=== PATIENT | male | born 1965 | race Caucasian/White ===

== ENCOUNTER → 2021-08-21 | Outpatient (CLI) | payer OTHER ==
[2021-08-21 20:48] LABS: Creatinine, Urine Random 10.8 mg/dL (27.00-270.00); Protein, Urine Random 13.6 mg/dL (0.0-11.9); Protein/Creat Ratio, Ur Random 1.3
== END | disposition home or self-care (01) ==
LOC: LAB SHORT 11:15
PROVIDERS: Internal Medicine Nephrology
DX: N18.31 Chronic kidney disease, stage 3a (principal)
CPT/HCPCS: 82570; 84156

== ENCOUNTER → 2021-11-21 | Outpatient (CLI) | payer OTHER | END | disposition home or self-care (01) | LOC: LAB SHORT 12:09 → PLD 12:09 | DX: D18.01 Hemangioma of skin and subcutaneous tissue (principal); Q82.8 Other specified congenital malformations of skin | CPT/HCPCS: 88305 ==

== ENCOUNTER 2022-01-18 12:32 | Emergency (ER) | payer OTHER ==
[~2022-01-18] VITALS: Ht 170.2 cm; Wt 111.1 kg
[2022-01-18 13:49] LABS: BASOPHILS ABSOLUTE AUTO 0.05 K/mm3 (0.00-0.23); BASOPHILS PERCENT AUTO 1 % (0-2); EOSINOPHILS PERCENT AUTO 1 % (0-6); Hematocrit 42.3 % (37.0-53.0); Hemoglobin 12.2 g/dL (13.5-17.5); IMMATURE GRAN ABSOLUTE AUTO 0.03 K/mm3 (0.00-0.10); IMMATURE GRAN PERCENT AUTO 0 % (0-1); LYMPHOCYTES ABSOLUTE AUTO 1.53 K/mm3 (0.84-5.20); LYMPHOCYTES PERCENT AUTO 21 % (21-46); MONOCYTES ABSOLUTE AUTO 0.61 K/mm3 (0.16-1.47); MONOCYTES PERCENT AUTO 8 % (4-13); Mean Corpuscular HGB 24.8 pg (26.0-34.0); Mean Corpuscular HGB Conc 28.8 g/dL (31.5-36.5); Mean Corpuscular Volume 86 fL (80-100); Mean Platelet Volume 9.8 fL (9.1-12.4); NEUTROPHILS ABSOLUTE AUTO 5.15 K/mm3 (1.96-9.15); NEUTROPHILS PERCENT AUTO 69 % (41-73); Platelet Count 295 K/mm3 (150-400); RDW Coefficient Variation 20.1 % (11.7-14.2); RDW Standard Deviation 61.5 fL (35.1-46.3); Red Blood Cell Count 4.92 M/mm3 (4.30-5.90); White Blood Cell Count 7.47 K/mm3 (4.00-11.30)
[2022-01-18 14:09] LABS: Albumin, Blood 3.7 g/dL (3.4-5.0); Albumin/Globulin Ratio 0.8 (0.8-1.8); Bilirubin, Total 0.4 mg/dL (0.1-1.0); Bun/Creatinine Ratio 29.2 (12.0-20.0); Calcium, Blood 9.5 mg/dL (8.5-10.1); Creatinine, Blood 1.37 mg/dL (0.60-1.20); Globulin, Blood 4.4 g/dL (2.2-4.0); Potassium, Blood 5.6 mmol/L (3.5-5.5); Total Protein, Blood 8.1 g/dL (6.4-8.2)
[2022-01-18] MEDS ORDERED: Amlodipine Bes2.5 MG PO (16:59)
[2022-01-18] MEDS ORDERED: METF500 PO (17:00)
[2022-01-18] MEDS ORDERED: ATOR80 PO (17:01)
[2022-01-18] MEDS ORDERED: NEURONTIN400 MG PO (17:01)
[2022-01-18] MEDS ORDERED: ERGO50000 PO (17:01)
[2022-01-18] MEDS ORDERED: ALLO300 PO (17:02)
[2022-01-18] MEDS ORDERED: SPIR25 PO (17:02)
[2022-01-18] MEDS ORDERED: METO50ER PO (17:02)
[2022-01-18] MEDS ORDERED: JARDIANCE25 MG PO (17:03)
[2022-01-18] MEDS ORDERED: OMEP20ER PO (17:03)
[2022-01-18] MEDS ORDERED: ASPI81CH PO (17:03)
[2022-01-18] MEDS ORDERED: SILD25T PO (17:04)
[2022-01-18] MEDS ORDERED: BUME1 PO (17:04)
[2022-01-18] MEDS ORDERED: TRELEGY ELLIPT1 EACH IH (17:05)
[2022-01-18] MEDS ORDERED: ZESTRIL40 M1 PO (17:05)
[2022-01-18] MEDS ORDERED: FLUTICASONE-SA1 EAC1 INH (17:05)
== END 2022-01-18 18:50 | disposition home or self-care (01) ==
LOC: ER 12:32
PROVIDERS: Emergency Medicine
DX: R22.43 Localized swelling, mass and lump, lower limb, bilateral (principal); E11.9 Type 2 diabetes mellitus without complications; F17.210 Nicotine dependence, cigarettes, uncomplicated
CPT/HCPCS: 36415; 80053; 83880; 85025; 93005; 93010

== ENCOUNTER → 2022-03-06 | Outpatient (CLI) | payer OTHER ==
[~2022-03-06] MED LIST: ALLO300 PO; ASPI81CH PO; ATOR80 PO; Amlodipine Bes2.5 MG PO; BUME1 PO; ERGO50000 PO; FLUTICASONE-SA1 EAC1 INH; JARDIANCE25 MG PO; METF500 PO; METO50ER PO; NEURONTIN400 MG PO; OMEP20ER PO; SILD25T PO; SPIR25 PO; TRELEGY ELLIPT1 EACH IH; ZESTRIL40 M1 PO
[2022-03-06 13:00] LABS: BASOPHILS ABSOLUTE AUTO 0.06 K/mm3 (0.00-0.23); BASOPHILS PERCENT AUTO 1 % (0-2); EOSINOPHILS ABSOLUTE AUTO 0.08 K/mm3 (0.00-0.68); EOSINOPHILS PERCENT AUTO 1 % (0-6); Hematocrit 30.8 % (37.0-53.0); Hemoglobin 9.4 g/dL (13.5-17.5); IMMATURE GRAN ABSOLUTE AUTO 0.02 K/mm3 (0.00-0.10); IMMATURE GRAN PERCENT AUTO 0 % (0-1); LYMPHOCYTES ABSOLUTE AUTO 1.43 K/mm3 (0.84-5.20); LYMPHOCYTES PERCENT AUTO 18 % (21-46); MONOCYTES ABSOLUTE AUTO 0.61 K/mm3 (0.16-1.47); MONOCYTES PERCENT AUTO 8 % (4-13); Mean Corpuscular HGB 27.6 pg (26.0-34.0); Mean Corpuscular HGB Conc 30.5 g/dL (31.5-36.5); Mean Corpuscular Volume 90 fL (80-100); Mean Platelet Volume 9.2 fL (9.1-12.4); NEUTROPHILS ABSOLUTE AUTO 5.85 K/mm3 (1.96-9.15); NEUTROPHILS PERCENT AUTO 73 % (41-73); Platelet Count 296 K/mm3 (150-400); RDW Coefficient Variation 16.1 % (11.7-14.2); RDW Standard Deviation 52.9 fL (35.1-46.3); Red Blood Cell Count 3.41 M/mm3 (4.30-5.90); White Blood Cell Count 8.05 K/mm3 (4.00-11.30)
[2022-03-06 13:03] LABS: Bun/Creatinine Ratio 17.1 (12.0-20.0); Calcium, Blood 8.7 mg/dL (8.5-10.1); Creatinine, Blood 1.05 mg/dL (0.60-1.20)
[2022-03-06 15:07] LABS: Percent Saturation 4.2 % (20.0-50.0)
== END | disposition home or self-care (01) ==
LOC: LAB SHORT 12:55 → LAB 12:55
PROVIDERS: Chiropractor
DX: K27.9 Peptic ulcer, site unspecified, unspecified as acute or chronic, without hemorrhage or perforation (principal); Z86.2 Personal history of diseases of the blood and blood-forming organs and certain disorders involving the immune mechanism
CPT/HCPCS: 80048; 82728; 83540; 83550; 85025

== ENCOUNTER → 2022-07-30 | Outpatient (CLI) | payer OTHER ==
[2022-07-30 12:20] LABS: BASOPHILS ABSOLUTE AUTO 0.04 K/mm3 (0.00-0.23); BASOPHILS PERCENT AUTO 1 % (0-2); EOSINOPHILS ABSOLUTE AUTO 0.05 K/mm3 (0.00-0.68); EOSINOPHILS PERCENT AUTO 1 % (0-6); Hematocrit 42.8 % (37.0-53.0); IMMATURE GRAN ABSOLUTE AUTO 0.03 K/mm3 (0.00-0.10); IMMATURE GRAN PERCENT AUTO 0 % (0-1); LYMPHOCYTES ABSOLUTE AUTO 1.78 K/mm3 (0.84-5.20); LYMPHOCYTES PERCENT AUTO 22 % (21-46); MONOCYTES ABSOLUTE AUTO 0.48 K/mm3 (0.16-1.47); MONOCYTES PERCENT AUTO 6 % (4-13); Mean Corpuscular HGB 22.3 pg (26.0-34.0); Mean Corpuscular Volume 79 fL (80-100); Mean Platelet Volume 9.8 fL (9.1-12.4); NEUTROPHILS ABSOLUTE AUTO 5.67 K/mm3 (1.96-9.15); NEUTROPHILS PERCENT AUTO 70 % (41-73); Platelet Count 177 K/mm3 (150-400); RDW Coefficient Variation 21.2 % (11.7-14.2); RDW Standard Deviation 58.4 fL (35.1-46.3); Red Blood Cell Count 5.39 M/mm3 (4.30-5.90); White Blood Cell Count 8.05 K/mm3 (4.00-11.30)
[2022-07-30 12:28] LABS: Albumin, Blood 3.8 g/dL (3.4-5.0); Albumin/Globulin Ratio 0.8 (0.8-1.8); Bilirubin, Total 0.6 mg/dL (0.1-1.0); Bun/Creatinine Ratio 16.1 (12.0-20.0); Calcium, Blood 9.5 mg/dL (8.5-10.1); Creatinine, Blood 1.24 mg/dL (0.60-1.20); Globulin, Blood 4.6 g/dL (2.2-4.0); Potassium, Blood 4.4 mmol/L (3.5-5.5); Total Protein, Blood 8.4 g/dL (6.4-8.2)
== END | disposition home or self-care (01) ==
LOC: LAB 12:10 → LAB SHORT 12:10
PROVIDERS: Family Medicine
DX: R10.9 Unspecified abdominal pain (principal)
CPT/HCPCS: 80053; 83690; 85025

== ENCOUNTER → 2022-12-03 | Outpatient (CLI) | payer OTHER | END | disposition home or self-care (01) | LOC: LAB SHORT 12:23 → LAB 12:23 → PLD 12:23 | DX: L82.1 Other seborrheic keratosis (principal); L57.0 Actinic keratosis | CPT/HCPCS: 88305 ==

== ENCOUNTER → 2023-05-08 | Outpatient (CLI) | payer OTHER ==
[2023-05-08 14:47] LABS: Source, Urine Voided
[2023-05-08 17:14] LABS: Bilirubin, Urine Neg (Neg); Blood, Urine Neg (Neg); Glucose Qualitative, Urine 4+ (Neg); Ketones, Urine Neg (Neg); Leukocyte Esterase, Urine Neg (Neg); Nitrite, Urine Neg (Neg); Protein, Urine Neg (Neg); Urobilinogen, Urine NORM (Normal)
[2023-05-08 17:33] LABS: Appearance, Urine Clear (Clear); Color, Urine Pale Yellow (P-Yellow)
[2023-05-08 17:58] LABS: Creatinine, Urine Random 9.94 mg/dL (27.00-270.00)
[2023-05-08 18:01] LABS: Microalb/Creat Ratio UR, Rand 190.141 mg/g (0.000-30.000)
[2023-05-08 18:04] LABS: Protein, Urine Random <5.0 mg/dL (0.0-11.9); Protein/Creat Ratio, Ur Random Unable to Calculate
[2023-05-08 21:21] LABS: Osmolality, Urine 280 mos/kg (15-1400)
== END ==
LOC: LAB 11:15 → LAB SHORT 11:15
PROVIDERS: Hospitalist
DX: I12.9 Hypertensive chronic kidney disease with stage 1 through stage 4 chronic kidney disease, or unspecified chronic kidney disease (principal); N18.2 Chronic kidney disease, stage 2 (mild); Z79.1 Long term (current) use of non-steroidal anti-inflammatories (NSAID)
CPT/HCPCS: 81003; 82043; 82570; 83935; 84156

== ENCOUNTER → 2023-06-19 | Outpatient (CLI) | payer MEDICARE ==
[2023-06-19 14:03] LABS: Source, Urine Clean Catch
[2023-06-19 14:42] LABS: Appearance, Urine Clear (Clear); Bilirubin, Urine Neg (Neg); Blood, Urine Neg (Neg); Glucose Qualitative, Urine 4+ (Neg); Ketones, Urine Neg (Neg); Leukocyte Esterase, Urine Neg (Neg); Nitrite, Urine Neg (Neg); Protein, Urine Neg (Neg); Specific Gravity, Urine 1.005 (1.003-1.022); Urobilinogen, Urine NORM (Normal)
[2023-06-19 15:21] LABS: Creatinine, Urine Random 8.01 mg/dL (27.00-270.00)
[2023-06-19 15:24] LABS: Color, Urine Pale Yellow (P-Yellow)
== END | disposition home or self-care (01) ==
LOC: LAB SHORT 13:58 → LAB 13:58
PROVIDERS: Hospitalist
DX: E87.1 Hypo-osmolality and hyponatremia (principal)
CPT/HCPCS: 81003; 82570; 83935; 84300

== ENCOUNTER → 2024-06-29 | Outpatient (CLI) | payer MEDICARE ==
[~2024-06-29] MED LIST changes: +AMITRIPTYLINE H25 MG PO; +BENAZEPRIL HCL20 M4 PO; +DEXCOM G7 SENS1 EACH MC; +FLUT.05NI; +HYCAMTIN PO; +JARDIANCE10 MG PO; +METO25 PO; +OXYC10TA19 PO; +ROPINIROLE HCL1 MG PO
== END | disposition home or self-care (01) ==
LOC: LAB SHORT 07:39 → LAB 07:39 → PLD 07:39
DX: D49.2 Neoplasm of unspecified behavior of bone, soft tissue, and skin (principal)
CPT/HCPCS: 88305

== ENCOUNTER 2024-08-27 17:27 | Inpatient (IN) | payer MEDICARE ==
[~2024-08-27] VITALS: Ht 170.2 cm; Wt 88.0 kg
[2024-08-27 18:58] LABS: BASOPHILS ABSOLUTE AUTO 0.02 K/mm3 (0.00-0.23); BASOPHILS PERCENT AUTO 1 % (0-2); EOSINOPHILS ABSOLUTE AUTO 0.04 K/mm3 (0.00-0.68); EOSINOPHILS PERCENT AUTO 1 % (0-6); Hematocrit 40.3 % (37.0-53.0); Hemoglobin 14.4 g/dL (13.5-17.5); IMMATURE GRAN ABSOLUTE AUTO 0.01 K/mm3 (0.00-0.10); IMMATURE GRAN PERCENT AUTO 0 % (0-1); LYMPHOCYTES ABSOLUTE AUTO 1.09 K/mm3 (0.84-5.20); LYMPHOCYTES PERCENT AUTO 25 % (21-46); MONOCYTES ABSOLUTE AUTO 0.27 K/mm3 (0.16-1.47); MONOCYTES PERCENT AUTO 6 % (4-13); Mean Corpuscular HGB 32.3 pg (26.0-34.0); Mean Corpuscular HGB Conc 35.7 g/dL (31.5-36.5); Mean Corpuscular Volume 90 fL (80-100); Mean Platelet Volume 9.8 fL (9.1-12.4); NEUTROPHILS ABSOLUTE AUTO 2.91 K/mm3 (1.96-9.15); NEUTROPHILS PERCENT AUTO 67 % (41-73); Platelet Count 136 K/mm3 (150-400); RDW Coefficient Variation 16.8 % (11.7-14.2); RDW Standard Deviation 55.7 fL (35.1-46.3); Red Blood Cell Count 4.46 M/mm3 (4.30-5.90); White Blood Cell Count 4.34 K/mm3 (4.00-11.30)
[2024-08-27 19:22] LABS: Albumin, Blood 3.7 g/dL (3.4-5.0); Albumin/Globulin Ratio 0.9 (0.8-1.8); Bilirubin, Total 0.4 mg/dL (0.1-1.0); Bun/Creatinine Ratio 19.7 (12.0-20.0); Calcium, Blood 9.6 mg/dL (8.5-10.1); Creatinine, Blood 0.66 mg/dL (0.60-1.20); Globulin, Blood 4.1 g/dL (2.2-4.0); Total Protein, Blood 7.8 g/dL (6.4-8.2)
[2024-08-27] MEDS ORDERED: NS 1,000 ML IV SCH ×2 (20:25→23:00)
[2024-08-27] MEDS ORDERED: Nicotine 21 MG PATCH TOP ONE (21:20)
[2024-08-27] MEDS ORDERED: OxyCODONE HCL 5 MG TAB PO PRN (22:10)
[2024-08-27] MEDS ORDERED: Ondansetron HCl 2 MG / ML 2ML Vial IV PRN (22:10)
[2024-08-27] MEDS ORDERED: rOPINIRole HCl 0.25 MG Tab PO SCH (23:00)
[2024-08-27 23:28] LABS: Bun/Creatinine Ratio 21.7 (12.0-20.0); Calcium, Blood 9.1 mg/dL (8.5-10.1); Creatinine, Blood 0.6 mg/dL (0.60-1.20); Potassium, Blood 4.3 mmol/L (3.5-5.5)
[2024-08-27 23:31] VITALS: BP 140/66
[2024-08-28] VITALS (21 sets, daily range): BP systolic 121–182; BP diastolic 55–102
[2024-08-28] MEDS ORDERED: OxyCODONE HCL 5 MG TAB PO PRN (00:01)
[2024-08-28] MEDS ORDERED: Albuterol HFA200 ACT/6.7 GM INH INH PRN (00:30)
[2024-08-28 03:08] LABS: BASOPHILS ABSOLUTE AUTO 0.02 K/mm3 (0.00-0.23); BASOPHILS PERCENT AUTO 1 % (0-2); EOSINOPHILS ABSOLUTE AUTO 0.05 K/mm3 (0.00-0.68); EOSINOPHILS PERCENT AUTO 1 % (0-6); Hematocrit 36.3 % (37.0-53.0); Hemoglobin 12.8 g/dL (13.5-17.5); IMMATURE GRAN ABSOLUTE AUTO 0.03 K/mm3 (0.00-0.10); IMMATURE GRAN PERCENT AUTO 1 % (0-1); LYMPHOCYTES ABSOLUTE AUTO 0.96 K/mm3 (0.84-5.20); LYMPHOCYTES PERCENT AUTO 23 % (21-46); MONOCYTES ABSOLUTE AUTO 0.29 K/mm3 (0.16-1.47); MONOCYTES PERCENT AUTO 7 % (4-13); Mean Corpuscular HGB 32.2 pg (26.0-34.0); Mean Corpuscular HGB Conc 35.3 g/dL (31.5-36.5); Mean Corpuscular Volume 91 fL (80-100); Mean Platelet Volume 10.4 fL (9.1-12.4); NEUTROPHILS ABSOLUTE AUTO 2.85 K/mm3 (1.96-9.15); NEUTROPHILS PERCENT AUTO 68 % (41-73); Platelet Count 107 K/mm3 (150-400); RDW Coefficient Variation 16.8 % (11.7-14.2); RDW Standard Deviation 56.7 fL (35.1-46.3); Red Blood Cell Count 3.97 M/mm3 (4.30-5.90)
[2024-08-28 03:16] LABS: Magnesium, Blood 1.6 mg/dL (1.6-2.4)
[2024-08-28 03:17] LABS: Bun/Creatinine Ratio 20.1 (12.0-20.0); Calcium, Blood 8.6 mg/dL (8.5-10.1); Creatinine, Blood 0.65 mg/dL (0.60-1.20); Potassium, Blood 3.9 mmol/L (3.5-5.5)
[2024-08-28] MEDS ORDERED: Omeprazole 20 MG CapCR PO SCH (06:00)
[2024-08-28] MEDS ORDERED: GABA300 PO (07:27)
[2024-08-28] MEDS ORDERED: Insulin Human Lispro 100 Units/ML 3ML Syringe SC SCH (07:30)
[2024-08-28] MEDS ORDERED: Amitriptyline HCl 25 MG Tab PO SCH ×2 (09:00→12:00)
[2024-08-28] MEDS ORDERED: Enoxaparin 40 MG/0.4 ML SYR SC SCH (09:00)
[2024-08-28] MEDS ORDERED: Lisinopril 10 MG Tab PO SCH (09:00)
[2024-08-28] MEDS ORDERED: Gabapentin 400 MG Cap PO SCH ×2 (09:00→12:00)
[2024-08-28] MEDS ORDERED: Empagliflozin 10 MG TAB PO SCH (09:00)
[2024-08-28] MEDS ORDERED: Atorvastatin 40 MG Tab PO SCH ×2 (09:00→21:00)
[2024-08-28] MEDS ORDERED: Metoprolol Tartrate 25 MG Tab PO SCH (09:00)
[2024-08-28] MEDS ORDERED: Lidocaine 4% 1 Patch TOP SCH (09:00)
[2024-08-28] MEDS ORDERED: Vitamin D1000 UNI1 PO (10:14)
[2024-08-28] MEDS ORDERED: REVATIO20 MG PO (10:15)
[2024-08-28] MEDS ORDERED: METF500 PO (10:18)
[2024-08-28 10:28] LABS: Bun/Creatinine Ratio 22.1 (12.0-20.0); Calcium, Blood 9.2 mg/dL (8.5-10.1); Creatinine, Blood 0.54 mg/dL (0.60-1.20); Potassium, Blood 4.3 mmol/L (3.5-5.5)
[2024-08-28] MEDS ORDERED: Sodium Chloride 3% 500 ML IV ONE (11:00)
[2024-08-28 11:45] LABS: Bun/Creatinine Ratio 20.6 (12.0-20.0); Calcium, Blood 8.8 mg/dL (8.5-10.1); Creatinine, Blood 0.53 mg/dL (0.60-1.20); Potassium, Blood 4.5 mmol/L (3.5-5.5)
[2024-08-28] MEDS ORDERED: rOPINIRole HCl 0.25 MG Tab PO SCH (12:00)
[2024-08-28] MEDS ORDERED: Sildenafil Citrate 20 MG Tab PO SCH ×2 (13:00→21:00)
[2024-08-28] MEDS ORDERED: Bumetanide 1 MG Tab PO SCH (13:00)
[2024-08-28 13:34] LABS: Bun/Creatinine Ratio 19.5 (12.0-20.0); Calcium, Blood 8.7 mg/dL (8.5-10.1); Creatinine, Blood 0.51 mg/dL (0.60-1.20); Potassium, Blood 4.5 mmol/L (3.5-5.5)
[2024-08-28 13:35] LABS: Bun/Creatinine Ratio 24.9 (12.0-20.0); Calcium, Blood 8.6 mg/dL (8.5-10.1); Creatinine, Blood 0.44 mg/dL (0.60-1.20); Potassium, Blood 4.3 mmol/L (3.5-5.5)
[2024-08-28 14:44] LABS: Bun/Creatinine Ratio 20.2 (12.0-20.0); Calcium, Blood 8.4 mg/dL (8.5-10.1); Creatinine, Blood 0.5 mg/dL (0.60-1.20); Potassium, Blood 4.2 mmol/L (3.5-5.5)
[2024-08-28 15:24] LABS: Bun/Creatinine Ratio 22.5 (12.0-20.0); Calcium, Blood 8.6 mg/dL (8.5-10.1); Creatinine, Blood 0.45 mg/dL (0.60-1.20); Potassium, Blood 4.4 mmol/L (3.5-5.5)
[2024-08-28 16:39] LABS: Bun/Creatinine Ratio 22.7 (12.0-20.0); Calcium, Blood 8.9 mg/dL (8.5-10.1); Creatinine, Blood 0.49 mg/dL (0.60-1.20); Potassium, Blood 4.2 mmol/L (3.5-5.5)
[2024-08-28 17:20] LABS: International Normalized Ratio 0.98; Prothrombin Time Results 10.5 Sec (9.7-11.5)
[2024-08-28] MEDS ORDERED: Melatonin 5 MG Tablet PO PRN (18:35)
[2024-08-28 18:50] LABS: Potassium, Blood 3.7 mmol/L (3.5-5.5)
[2024-08-28 20:41] LABS: Potassium, Blood 3.5 mmol/L (3.5-5.5)
[2024-08-28] MEDS ORDERED: Nicotine 21 MG PATCH TOP SCH (21:00)
[2024-08-28 22:47] LABS: Potassium, Blood 3.6 mmol/L (3.5-5.5)
[2024-08-29] VITALS (10 sets, daily range): BP systolic 135–184; BP diastolic 68–101
[2024-08-29] MEDS ORDERED: Sodium Chloride 3% 500 ML IV ONE (02:05)
[2024-08-29 02:26] LABS: Potassium, Blood 4.1 mmol/L (3.5-5.5)
[2024-08-29 03:40] LABS: BASOPHILS ABSOLUTE AUTO 0.02 K/mm3 (0.00-0.23); BASOPHILS PERCENT AUTO 1 % (0-2); EOSINOPHILS ABSOLUTE AUTO 0.04 K/mm3 (0.00-0.68); EOSINOPHILS PERCENT AUTO 1 % (0-6); Hematocrit 39.1 % (37.0-53.0); Hemoglobin 14.1 g/dL (13.5-17.5); IMMATURE GRAN ABSOLUTE AUTO 0.01 K/mm3 (0.00-0.10); IMMATURE GRAN PERCENT AUTO 0 % (0-1); LYMPHOCYTES ABSOLUTE AUTO 0.81 K/mm3 (0.84-5.20); LYMPHOCYTES PERCENT AUTO 23 % (21-46); MONOCYTES ABSOLUTE AUTO 0.22 K/mm3 (0.16-1.47); MONOCYTES PERCENT AUTO 6 % (4-13); Mean Corpuscular HGB 32.8 pg (26.0-34.0); Mean Corpuscular HGB Conc 36.1 g/dL (31.5-36.5); Mean Corpuscular Volume 91 fL (80-100); Mean Platelet Volume 9.9 fL (9.1-12.4); NEUTROPHILS ABSOLUTE AUTO 2.39 K/mm3 (1.96-9.15); NEUTROPHILS PERCENT AUTO 69 % (41-73); Platelet Count 122 K/mm3 (150-400); RDW Standard Deviation 55.9 fL (35.1-46.3); White Blood Cell Count 3.49 K/mm3 (4.00-11.30)
[2024-08-29 04:03] LABS: Bun/Creatinine Ratio 22.5 (12.0-20.0); Calcium, Blood 9.2 mg/dL (8.5-10.1); Creatinine, Blood 0.58 mg/dL (0.60-1.20)
[2024-08-29 07:55] LABS: Potassium, Blood 3.9 mmol/L (3.5-5.5)
[2024-08-29 08:27] LABS: Thyroid Stimulating Hormone 0.485 uIU/mL (0.360-4.800)
[2024-08-29] MEDS ORDERED: Fluticasone 0.05% Nasal Spray SCH (09:00)
[2024-08-29] MEDS ORDERED: Cholecalciferol 1000 Unit Tablet (=25MCG) PO SCH (09:00)
[2024-08-29] MEDS ORDERED: Aspirin 81 MG Chew PO SCH (09:00)
[2024-08-29] MEDS ORDERED: Bumetanide 1 MG Tab PO SCH (09:00)
[2024-08-29 09:28] LABS: Potassium, Blood 3.9 mmol/L (3.5-5.5)
[2024-08-29 09:35] LABS: Uric Acid, Blood 4.2 mg/dL (3.5-7.2)
[2024-08-29 09:37] LABS: Thyroid Stimulating Hormone 0.304 uIU/mL (0.360-4.800)
[2024-08-29] MEDS ORDERED: HyDROXyzine HCl 25 MG Tab PO PRN (10:35)
[2024-08-29] MEDS ORDERED: Sennosides 8.6 MG Tab PO SCH (12:50)
[2024-08-29 15:45] LABS: Potassium, Blood 3.9 mmol/L (3.5-5.5)
[2024-08-30 03:09] VITALS: BP 124/104
[2024-08-30 03:34] VITALS: BP 147/73
[2024-08-30 07:20] LABS: Albumin, Blood 3.4 g/dL (3.4-5.0); Albumin/Globulin Ratio 0.9 (0.8-1.8); Bilirubin, Total 0.4 mg/dL (0.1-1.0); Calcium, Blood 8.5 mg/dL (8.5-10.1); Creatinine, Blood 0.64 mg/dL (0.60-1.20); Globulin, Blood 3.7 g/dL (2.2-4.0); Total Protein, Blood 7.1 g/dL (6.4-8.2)
[2024-08-30 07:52] VITALS: BP 176/97
[2024-08-30 11:07] LABS: Free Thyroxine 1.38 ng/dL (0.70-1.60)
[2024-08-30 11:09] LABS: Triiodothyronine, Free 2.72 pg/mL (2.18-3.98)
== END 2024-08-30 12:36 | disposition left against medical advice (07) | DRG 644 ==
LOC: ER 17:27 → MEDS 17:28 → ICUE 17:28 → MEDS 23:20 → ICUE 08-28 12:19 → MEDS 08-28 13:52 → ICUE 08-28 19:17 → MEDS 08-30 03:38
PROVIDERS: Family Medicine; Hospitalist; Internal Medicine Critical Care Medicine; Internal Medicine Nephrology; Student in an Organized Health Care Education/Training Program; ADMIT Student in an Organized Health Care Education/Training Program
DX: E22.2 Syndrome of inappropriate secretion of antidiuretic hormone (principal); C34.90 Malignant neoplasm of unspecified part of unspecified bronchus or lung; C78.7 Secondary malignant neoplasm of liver and intrahepatic bile duct; C78.6 Secondary malignant neoplasm of retroperitoneum and peritoneum; I13.0 Hypertensive heart and chronic kidney disease with heart failure and stage 1 through stage 4 chronic kidney disease, or unspecified chronic kidney disease; I50.32 Chronic diastolic (congestive) heart failure; C79.51 Secondary malignant neoplasm of bone; E11.22 Type 2 diabetes mellitus with diabetic chronic kidney disease; N18.9 Chronic kidney disease, unspecified; E78.5 Hyperlipidemia, unspecified; G47.33 Obstructive sleep apnea (adult) (pediatric); F17.210 Nicotine dependence, cigarettes, uncomplicated; I27.20 Pulmonary hypertension, unspecified; F41.9 Anxiety disorder, unspecified; Z79.891 Long term (current) use of opiate analgesic; Z79.899 Other long term (current) drug therapy; Z79.84 Long term (current) use of oral hypoglycemic drugs; Z79.82 Long term (current) use of aspirin; Z51.11 Encounter for antineoplastic chemotherapy; Z51.0 Encounter for antineoplastic radiation therapy; Z98.890 Other specified postprocedural states; Z88.2 Allergy status to sulfonamides; Z88.1 Allergy status to other antibiotic agents; Z88.8 Allergy status to other drugs, medicaments and biological substances; Z53.29 Procedure and treatment not carried out because of patient's decision for other reasons
CPT/HCPCS: 36415; 71046; 80048; 80051; 80053; 82533; 82947; 83735; 83880; 83930; 83935; 84295; 84300; 84439; 84443; 84481; 84550; 85025; 85610; 85730; 93005; 93010; 94760; 99284-25; A9270; C1751; G0378; J1650; J7030

== ENCOUNTER 2024-09-30 11:14 | Emergency (ER) | payer MEDICARE ==
[~2024-09-30] VITALS: Ht 172.7 cm; Wt 89.8 kg
[~2024-09-30 11:14] MED LIST changes: +GABA300 PO; +REVATIO20 MG PO; +Vitamin D1000 UNI1 PO
[2024-09-30 11:48] LABS: BASOPHILS ABSOLUTE AUTO 0.03 K/mm3 (0.00-0.23); BASOPHILS PERCENT AUTO 1 % (0-2); EOSINOPHILS ABSOLUTE AUTO 0.04 K/mm3 (0.00-0.68); EOSINOPHILS PERCENT AUTO 1 % (0-6); Hematocrit 41.6 % (37.0-53.0); Hemoglobin 14.5 g/dL (13.5-17.5); IMMATURE GRAN ABSOLUTE AUTO 0.04 K/mm3 (0.00-0.10); IMMATURE GRAN PERCENT AUTO 1 % (0-1); LYMPHOCYTES ABSOLUTE AUTO 0.75 K/mm3 (0.84-5.20); LYMPHOCYTES PERCENT AUTO 12 % (21-46); MONOCYTES ABSOLUTE AUTO 0.65 K/mm3 (0.16-1.47); MONOCYTES PERCENT AUTO 10 % (4-13); Mean Corpuscular HGB 31.7 pg (26.0-34.0); Mean Corpuscular HGB Conc 34.9 g/dL (31.5-36.5); Mean Corpuscular Volume 91 fL (80-100); NEUTROPHILS ABSOLUTE AUTO 4.94 K/mm3 (1.96-9.15); NEUTROPHILS PERCENT AUTO 77 % (41-73); Platelet Count 218 K/mm3 (150-400); RDW Coefficient Variation 16.2 % (11.7-14.2); RDW Standard Deviation 54.4 fL (35.1-46.3); Red Blood Cell Count 4.57 M/mm3 (4.30-5.90); White Blood Cell Count 6.45 K/mm3 (4.00-11.30)
[2024-09-30 12:07] LABS: Albumin, Blood 3.3 g/dL (3.4-5.0); Albumin/Globulin Ratio 0.7 (0.8-1.8); Bilirubin, Total 0.8 mg/dL (0.1-1.0); Bun/Creatinine Ratio 19.2 (12.0-20.0); Calcium, Blood 8.8 mg/dL (8.5-10.1); Creatinine, Blood 0.52 mg/dL (0.60-1.20); Globulin, Blood 4.6 g/dL (2.2-4.0); Potassium, Blood 4.3 mmol/L (3.5-5.5); Total Protein, Blood 7.9 g/dL (6.4-8.2)
[2024-09-30] MEDS ORDERED: NS 1,000 ML IV SCH (15:05)
[2024-09-30] MEDS ORDERED: HYDROmorphone HCl/Pf 1MG SYR IV ONE (15:05)
[2024-09-30] MEDS ORDERED: NS 1,000 ML IV ONE (15:31)
[2024-09-30] MEDS ORDERED: Nicotine 21 MG PATCH TOP ONE (16:10)
[2024-09-30 17:15] VITALS: BP 162/95
== END 2024-09-30 17:50 | disposition home or self-care (01) ==
LOC: ER 11:14
PROVIDERS: Emergency Medicine
DX: R07.9 Chest pain, unspecified (principal); I11.0 Hypertensive heart disease with heart failure; I50.9 Heart failure, unspecified; K21.9 Gastro-esophageal reflux disease without esophagitis; E11.40 Type 2 diabetes mellitus with diabetic neuropathy, unspecified; G47.33 Obstructive sleep apnea (adult) (pediatric); Z59.89 Other problems related to housing and economic circumstances; Z88.8 Allergy status to other drugs, medicaments and biological substances; Z88.2 Allergy status to sulfonamides; Z79.899 Other long term (current) drug therapy; Z79.84 Long term (current) use of oral hypoglycemic drugs; Z79.82 Long term (current) use of aspirin
CPT/HCPCS: 71046; 71260; 80053; 83690; 84484; 85025; 93005; 93010; 96361; 96374-59; 99285-25; A9270; J1171; J7030; Q9967

== ENCOUNTER 2024-11-01 11:26 | Inpatient (IN) | payer MEDICARE ==
[~2024-11-01] VITALS: Ht 172.7 cm; Wt 79.7 kg
[2024-11-01] VITALS (32 sets, daily range): BP systolic 142–169; BP diastolic 77–106
[2024-11-01 12:08] LABS: BASOPHILS ABSOLUTE AUTO 0.03 K/mm3 (0.00-0.23); BASOPHILS PERCENT AUTO 0 % (0-2); EOSINOPHILS ABSOLUTE AUTO 0.01 K/mm3 (0.00-0.68); EOSINOPHILS PERCENT AUTO 0 % (0-6); Hematocrit 42.0 % (37.0-53.0); Hemoglobin 14.0 g/dL (13.5-17.5); IMMATURE GRAN ABSOLUTE AUTO 0.03 K/mm3 (0.00-0.10); IMMATURE GRAN PERCENT AUTO 0 % (0-1); LYMPHOCYTES ABSOLUTE AUTO 0.77 K/mm3 (0.84-5.20); LYMPHOCYTES PERCENT AUTO 11 % (21-46); MONOCYTES ABSOLUTE AUTO 0.66 K/mm3 (0.16-1.47); MONOCYTES PERCENT AUTO 10 % (4-13); Mean Corpuscular HGB Conc 33.3 g/dL (31.5-36.5); Mean Corpuscular Volume 91 fL (80-100); NEUTROPHILS ABSOLUTE AUTO 5.25 K/mm3 (1.96-9.15); NEUTROPHILS PERCENT AUTO 78 % (41-73); NRBC ABSOLUTE 0.00 K/mm3 (0.00-0.02); NRBC Auto 0.0 /100 WBC (0.0-0.2); Platelet Count 222 K/mm3 (150-400); RDW Coefficient Variation 18.1 % (11.7-14.2); RDW Standard Deviation 60.5 fL (35.1-46.3)
[2024-11-01 12:24] LABS: Alanine Aminotransfer (ALT/SGP 30.0 U/L (12-78); Albumin, Blood 3.2 g/dL (3.4-5.0); Albumin/Globulin Ratio 0.7 (0.8-1.8); Anion Gap 14.0 mmol/L (3-11); Aspartate Aminotrans (AST/SGOT 35.0 U/L (12-37); Bilirubin, Total 0.9 mg/dL (0.1-1.0); Blood Urea Nitrogen 9.0 mg/dL (8-24); CO2, Blood 23.0 mmol/L (21-32); Calcium, Blood 9.3 mg/dL (8.5-10.1); Chloride, Blood 84.0 mmol/L (98-108); Creatinine, Blood 0.46 mg/dL (0.60-1.20); Globulin, Blood 4.8 g/dL (2.2-4.0); Glucose, Blood 120.0 mg/dL (70-99); Potassium, Blood 4.5 mmol/L (3.5-5.5); Sodium, Blood 116.0 mmol/L (136-145); Total Protein, Blood 8.0 g/dL (6.4-8.2)
[2024-11-01] MEDS ORDERED: NS 1,000 ML IV SCH (12:35)
[2024-11-01] MEDS ORDERED: UREA 15 GM POWD.PACK PO ONE ×2 (14:40→20:10)
[2024-11-01] MEDS ORDERED: GLIPIZIDE ER2.5 MG PO (16:15)
[2024-11-01] MEDS ORDERED: METOPROLOL SUCC25 MG PO (16:20)
[2024-11-01] MEDS ORDERED: JARDIANCE25 MG PO (16:26)
[2024-11-01] MEDS ORDERED: HYDCOR2.5C (16:29)
[2024-11-01] MEDS ORDERED: ACET500 PO (16:30)
[2024-11-01] MEDS ORDERED: Insulin Human Lispro 100 Units/ML 3ML Syringe SC SCH (16:30)
[2024-11-01 16:33] LABS: Anion Gap 15.0 mmol/L (3-11); Blood Urea Nitrogen 18.0 mg/dL (8-24); CO2, Blood 24.0 mmol/L (21-32); Calcium, Blood 9.5 mg/dL (8.5-10.1); Chloride, Blood 82.0 mmol/L (98-108); Creatinine, Blood 0.4 mg/dL (0.60-1.20); Glucose, Blood 161.0 mg/dL (70-99); Potassium, Blood 4.6 mmol/L (3.5-5.5); Sodium, Blood 116.0 mmol/L (136-145)
[2024-11-01] MEDS ORDERED: Oxycodone HCl20 M1 PO (16:41)
[2024-11-01] MEDS ORDERED: ONDA4 PO (16:42)
[2024-11-01] MEDS ORDERED: METO10 PO (16:44)
[2024-11-01] MEDS ORDERED: HYDROmorphone HCl/Pf 1MG SYR IV PRN ×2 (16:45→20:15)
[2024-11-02] VITALS (32 sets, daily range): BP systolic 126–169; BP diastolic 71–143
[2024-11-02 03:58] LABS: BASOPHILS ABSOLUTE AUTO 0.01 K/mm3 (0.00-0.23); BASOPHILS PERCENT AUTO 0 % (0-2); EOSINOPHILS ABSOLUTE AUTO 0.00 K/mm3 (0.00-0.68); EOSINOPHILS PERCENT AUTO 0 % (0-6); Hematocrit 39.8 % (37.0-53.0); Hemoglobin 13.8 g/dL (13.5-17.5); IMMATURE GRAN ABSOLUTE AUTO 0.04 K/mm3 (0.00-0.10); IMMATURE GRAN PERCENT AUTO 1 % (0-1); LYMPHOCYTES ABSOLUTE AUTO 0.56 K/mm3 (0.84-5.20); LYMPHOCYTES PERCENT AUTO 12 % (21-46); MONOCYTES ABSOLUTE AUTO 0.40 K/mm3 (0.16-1.47); MONOCYTES PERCENT AUTO 9 % (4-13); Mean Corpuscular HGB Conc 34.7 g/dL (31.5-36.5); Mean Corpuscular Volume 88 fL (80-100); NEUTROPHILS ABSOLUTE AUTO 3.53 K/mm3 (1.96-9.15); NEUTROPHILS PERCENT AUTO 78 % (41-73); NRBC ABSOLUTE 0.00 K/mm3 (0.00-0.02); NRBC Auto 0.0 /100 WBC (0.0-0.2); Platelet Count 209 K/mm3 (150-400); RDW Coefficient Variation 17.8 % (11.7-14.2); RDW Standard Deviation 57.7 fL (35.1-46.3)
[2024-11-02 04:25] LABS: Alanine Aminotransfer (ALT/SGP 28.0 U/L (12-78); Albumin, Blood 3.2 g/dL (3.4-5.0); Albumin/Globulin Ratio 0.7 (0.8-1.8); Anion Gap 10.0 mmol/L (3-11); Aspartate Aminotrans (AST/SGOT 27.0 U/L (12-37); Bilirubin, Total 0.6 mg/dL (0.1-1.0); Blood Urea Nitrogen 21.0 mg/dL (8-24); CO2, Blood 26.0 mmol/L (21-32); Calcium, Blood 9.3 mg/dL (8.5-10.1); Chloride, Blood 83.0 mmol/L (98-108); Creatinine, Blood 0.47 mg/dL (0.60-1.20); Globulin, Blood 4.7 g/dL (2.2-4.0); Glucose, Blood 130.0 mg/dL (70-99); Potassium, Blood 4.3 mmol/L (3.5-5.5); Sodium, Blood 115.0 mmol/L (136-145); Total Protein, Blood 7.9 g/dL (6.4-8.2)
[2024-11-02] MEDS ORDERED: Haloperidol Lactate Inj. 5 MG/ML Injection IM PRN (05:15)
[2024-11-02] MEDS ORDERED: UREA 15 GM POWD.PACK PO SCH (09:00)
[2024-11-02] MEDS ORDERED: Enoxaparin 40 MG/0.4 ML SYR SC SCH (09:00)
[2024-11-02] MEDS ORDERED: Lidocaine 4% 1 Patch TOP SCH (10:34)
[2024-11-03] VITALS: BP 141/71
[2024-11-03 04:00] VITALS: BP 137/83
[2024-11-03] MEDS ORDERED: Ondansetron HCl 2 MG / ML 2ML Vial IV PRN (05:15)
[2024-11-03 05:42] LABS: Anion Gap 9.0 mmol/L (3-11); Blood Urea Nitrogen 17.0 mg/dL (8-24); CO2, Blood 28.0 mmol/L (21-32); Calcium, Blood 9.0 mg/dL (8.5-10.1); Chloride, Blood 85.0 mmol/L (98-108); Creatinine, Blood 0.49 mg/dL (0.60-1.20); Glucose, Blood 142.0 mg/dL (70-99); Potassium, Blood 4.2 mmol/L (3.5-5.5)
[2024-11-03 05:44] LABS: Sodium, Blood 118.0 mmol/L (136-145)
[2024-11-03 08:00] VITALS: BP 150/82
[2024-11-03] MEDS ORDERED: GABA600 PO (14:09)
[2024-11-03] MEDS ORDERED: UREAPRO454 GM PO (14:10)
[2024-11-03] MEDS ORDERED: LIDO700A20 TOP (14:22)
[2024-11-03] MEDS ORDERED: MetFORMIN HCl 500 mg PO SCH (17:00)
[2024-11-04] MEDS ORDERED: Cholecalciferol 1000 Unit Tablet (=25MCG) PO SCH (09:00)
[2024-11-04] MEDS ORDERED: Fluticasone 0.05% Nasal Spray SCH (09:00)
== END 2024-11-03 15:56 | disposition hospice, home (50) | DRG 644 ==
LOC: ER 11:26 → ICUE 13:55
PROVIDERS: Emergency Medicine; Student in an Organized Health Care Education/Training Program; ADMIT Family Medicine
DX: E22.2 Syndrome of inappropriate secretion of antidiuretic hormone (principal); C34.90 Malignant neoplasm of unspecified part of unspecified bronchus or lung; I50.32 Chronic diastolic (congestive) heart failure; C79.51 Secondary malignant neoplasm of bone; C79.31 Secondary malignant neoplasm of brain; E87.8 Other disorders of electrolyte and fluid balance, not elsewhere classified; I27.20 Pulmonary hypertension, unspecified; Z51.5 Encounter for palliative care; I11.0 Hypertensive heart disease with heart failure; E11.42 Type 2 diabetes mellitus with diabetic polyneuropathy; K21.9 Gastro-esophageal reflux disease without esophagitis; G25.81 Restless legs syndrome; D63.8 Anemia in other chronic diseases classified elsewhere; G47.33 Obstructive sleep apnea (adult) (pediatric); E78.5 Hyperlipidemia, unspecified; Z98.890 Other specified postprocedural states; Z88.2 Allergy status to sulfonamides; Z88.6 Allergy status to analgesic agent; Z88.1 Allergy status to other antibiotic agents; Z79.82 Long term (current) use of aspirin; Z79.51 Long term (current) use of inhaled steroids; Z79.84 Long term (current) use of oral hypoglycemic drugs; Z79.899 Other long term (current) drug therapy; Z79.891 Long term (current) use of opiate analgesic
CPT/HCPCS: 70470; 74177; 80048; 80053; 82947; 83690; 84295; 85025; 93005; 93010; 99285-25; A9270; C1751; J1171; J1630; J1650; J2405; J7030; Q9967

== ENCOUNTER 2024-11-03 18:45 | Observation (INO) | payer MEDICARE ==
[~2024-11-03] VITALS: Ht 170.2 cm; Wt 65.5 kg
[~2024-11-03 18:45] MED LIST changes: +ACET500 PO; +GABA600 PO; +GLIPIZIDE ER2.5 MG PO; +HYDCOR2.5C; +LIDO700A20 TOP; +METO10 PO; +METOPROLOL SUCC25 MG PO; +ONDA4 PO; +Oxycodone HCl20 M1 PO; +UREAPRO454 GM PO
[2024-11-03 19:16] LABS: BASOPHILS ABSOLUTE AUTO 0.02 K/mm3 (0.00-0.23); BASOPHILS PERCENT AUTO 0 % (0-2); EOSINOPHILS ABSOLUTE AUTO 0.01 K/mm3 (0.00-0.68); EOSINOPHILS PERCENT AUTO 0 % (0-6); Hematocrit 39.2 % (37.0-53.0); Hemoglobin 13.2 g/dL (13.5-17.5); IMMATURE GRAN ABSOLUTE AUTO 0.05 K/mm3 (0.00-0.10); IMMATURE GRAN PERCENT AUTO 1 % (0-1); LYMPHOCYTES ABSOLUTE AUTO 0.51 K/mm3 (0.84-5.20); LYMPHOCYTES PERCENT AUTO 5 % (21-46); MONOCYTES ABSOLUTE AUTO 0.76 K/mm3 (0.16-1.47); MONOCYTES PERCENT AUTO 8 % (4-13); Mean Corpuscular HGB Conc 33.7 g/dL (31.5-36.5); Mean Corpuscular Volume 90 fL (80-100); NEUTROPHILS ABSOLUTE AUTO 8.81 K/mm3 (1.96-9.15); NEUTROPHILS PERCENT AUTO 87 % (41-73); NRBC ABSOLUTE 0.00 K/mm3 (0.00-0.02); NRBC Auto 0.0 /100 WBC (0.0-0.2); Platelet Count 164 K/mm3 (150-400); RDW Coefficient Variation 17.9 % (11.7-14.2); RDW Standard Deviation 59.8 fL (35.1-46.3)
[2024-11-03 19:51] LABS: Alanine Aminotransfer (ALT/SGP 33.0 U/L (12-78); Albumin, Blood 2.8 g/dL (3.4-5.0); Albumin/Globulin Ratio 0.7 (0.8-1.8); Anion Gap 9.0 mmol/L (3-11); Aspartate Aminotrans (AST/SGOT 54.0 U/L (12-37); Bilirubin, Total 0.7 mg/dL (0.1-1.0); Blood Urea Nitrogen 17.0 mg/dL (8-24); CO2, Blood 26.0 mmol/L (21-32); Calcium, Blood 9.4 mg/dL (8.5-10.1); Chloride, Blood 87.0 mmol/L (98-108); Creatinine, Blood 0.47 mg/dL (0.60-1.20); Globulin, Blood 4.3 g/dL (2.2-4.0); Glucose, Blood 172.0 mg/dL (70-99); Potassium, Blood 4.3 mmol/L (3.5-5.5); Sodium, Blood 118.0 mmol/L (136-145); Total Protein, Blood 7.1 g/dL (6.4-8.2)
--- NOTE | 2024-11-04 05:50 | NUR ---
SHIFT SUMMARY PT A&Ox2-3, WITH SOME CONFUSION AT TIMES. PT IRRITABLE WHEN ARRIVING TO THE FLOOR FROM ER. PT C/O BACK PAIN AND MEDICATED PER EMAR AND REPOSITIONED. DRINKS AND SNACKS PROVIDED BUT PT COMPLAINED ABOUT THE LOOK OF THE FOOD OR TASTE OF THE DRINKS. BED ALARM ON BUT PT UP OOB FREQUENTLY. PT HELPED TO CHAIR TO EASE BACK PAIN BUT PT STILL STANDING UP WITHOUT ASSITANCE OR CALLING. PT INSISTING THAT HE WANTED A CIGERATE OR TO "GO OUT TO SMOKE". EDUCATION GIVEN ON HOSPITAL'S NO SMOKING POLICY BUT PT ONLY BECAME MORE IRRATBLE. NICOTINE REPLACEMENT ORDER OBTAINED AND PATCH PLACED ON RIGHT SHOULDER. PT CONTINUED TO GET OUT OF CHAIR AND WAS NOT REDIRECTABLE. CHARGE NURSE HELPED THIS NURSE GET PT BACK TO BED AND PLACE A PETE ON PT. THIS NURSE CALLED BOTH SISTERS, PER PT REQUEST, WITH NO ANSWER. PT COULD BE HEARD YELLING OUT, SWEARING, RIPPING HOSPITAL GOWN, AND STATING HE WOULD CALL 911. SECURITY CAME TO BEDSIDE AND SAT WITH PT FOR SOME TIME. CALLED AND ORDER GIVEN FOR IM ZYPREXA. PT FINALLY ABLE TO FALL ASLEEP AROUND 0345. PETE Min. 1:1 SITTER AT BEDSIE AROUND 0430. PT's HOME MEDICATIONS TAKEN TO PHARMACY. BED ALARM ON. BED IN LOWEST POSITION.
--- NOTE | 2024-11-04 07:38 | NUR ---
ASSUMED CARE OF PATIENT. PATIENT IS AWAKE, CONFUSED, HALLUCINATING AND REACH FOR TINGS IN FRONT OF HIM THAT ARE NOT THERE. CLIMBING OUT OF BED. YELLING OUT AT TIMES REFUSING TO KEEP O2 OR GOEN ON. SITTER IN ROOM. CALL LIGHT WITHIN REACH.
[2024-11-04] MEDS ORDERED: MetFORMIN HCl 500 mg PO SCH (08:00)
[2024-11-04] MEDS ORDERED: UREA 15 GM POWD.PACK PO SCH (09:00)
[2024-11-04] MEDS ORDERED: Morphine Sulfate 20 MG/1ML 1 ML Oral Syringe SL PRN ×2 (09:20→23:36)
[2024-11-04] MEDS ORDERED: LORazepam 2 MG/ML 1ML Injection IV PRN (09:25)
--- NOTE | 2024-11-04 16:51 | NUR ---
PATIENT ANXIOUS, AGITATED, THRASHING IN BED. MEDICATED PER ORDERS. PATIENTS TAKES PAIN AND ANXIETY MED, CHEWS THEM, SPITS SOME OUT AND THEN SWALLOWS SOME WITH SMALL SIP OF WATER. PATIENT INCONTINENT OF LARGE AMOUNT OF URINE. INCONTINENT CARE PROVIDED. BRIEF PLACED. NO OTHER CHANGES TO PREVIOUS ASSESSMENT
--- NOTE | 2024-11-04 19:38 | NUR ---
PALLIATIVE CARE NOTE: 0915 CALL FROM PRIMARY RN STATING PT IS AGITATED, IN PAIN, CONFUSED AND IMPULSIVE-HIGH FALL RISK. CALLED DR. LAZAR TO ORDER COMFORT MEDICATIONS FOR ABOVE SYMPTOMS. ORDERS RECIEVED AND PLACED.
[2024-11-04] MEDS ORDERED: Haloperidol Lactate Inj. 5 MG/ML Injection IV ONE (21:15)
[2024-11-04] MEDS ORDERED: Morphine Sulfate 20 MG/1ML 1 ML Oral Syringe SL SCH (22:00)
[2024-11-05] MEDS ORDERED: Haloperidol Lactate Inj. 5 MG/ML Injection IV PRN
[2024-11-05] MEDS ORDERED: Haloperidol Lactate Inj. 5 MG/ML Injection IV SCH
--- NOTE | 2024-11-05 05:41 | NUR ---
PATIENT SLEPT VERY LITTLE . IS HARD TO REDIRECT, HYPERFOCUSES, VERBALLY AGRESSIVE AND VERY INAPPROPRIATE, HE URINATES ON FLOOR SHORTLY AFTER BEING OFFERED PROPER ELIMATION DEVICES. PRNS GIVE FOR PAIN AND ANXIETY SOON A AVAILABLE ONLY PARTIALLY EFFECTIVE. ASKED DR TO INCREASE COMFORT CARE MEASURES AND TO DISCONTINUE PO MEDICATOIN OR CHANGE IT TO IV.
--- NOTE | 2024-11-05 18:28 | NUR ---
SHIFT SUMMARY PATIENT ALERT AND INTERACT BUT CONFUSED AT TIMES. PATIENT ABLE TO ANSWER DIRECT QUESTIONS AND KNEW IT WAS 2024. PATIENT MEDICATED FOR PAIN PER ORDERS. ATIVAN GIVEN FOR ANXIETY. SISTER CALLED FOR UPDATE AND PLANS TO VISIT TOMORROW.
[2024-11-06] MEDS ORDERED: Morphine Sulfate 20 MG/1ML 1 ML Oral Syringe SL PRN (00:36)
--- NOTE | 2024-11-06 18:20 | NUR ---
DAY SHIFT SUMMARY ORIENTATION WAXES AND WANES, PT HAS BEEN ATTEMPTING TO BED EXIT SEVERAL TIMES DURING SHIFT, MEDICATED FOR PAIN PER MAR, SISTER VISITED FOR SEVERAL HOURS THIS SHIFT, PT REQ A BIG MAC AND ATE ONE, APPEARS TO BE SLEEPING COMFORTABLY AT THIS TIME, CALL LIGHT IN REACH, WILL CONT TO MONITOR UNTIL REPORT GIVEN TO ONCOMING NURSE.
--- NOTE | 2024-11-07 08:57 | NUR ---
BEDSIDE NURSE ASKED FOR A REVIEW OF MAR D/T HOME MEDS ON REC WHILE ON COMFORT CARE. THIS PC RN REVIEWED MAR AND NOTED PT REFUSED MAJORITY OF HIS MEDICATIONS YESTERDAY 11/06/24. REVIEWED MAR WITH PROVIDER. THIS PC RN RECOMMENDS D/C MAJORITY OF PT'S HOME MEDICATIONS. CONTINUE TO OFFER: NICOTINE PATCH GABAPENTIN FOR HIS NEUROPATHY REQUIP FOR HIS RESTLESS LEG SYNDROME ALL BOWEL CARE MEDICATIONS PC TO REMAIN AVAILABLE NEEDED. UPDATE PROVIDED TO PRIMARY RN AND CM.
[2024-11-07] MEDS ORDERED: Diazepam 5 MG / ML 2ML SYR IV PRN (10:35)
--- NOTE | 2024-11-07 17:31 | NUR ---
SHIFT SUMMARY UNABLE TO ASSESS PT ORIENTATION, ON COMFORT CARE. EMAR REFLECTS THIS CHANGE. PT HAS REMAINED IN BED FOR SHIFT, CHECKING BRIEF Q2 HOURS NEEDED. TOLERATING PO MEDICATION. DOES HAVE DIFFICULTY COGNITIVELY WITH TAKING PAIN MEDS, DISCUSSED THIS WITH EMMA IN PALLIATIVE CARE. BED IN LOWEST POSITION, CALL LIGHT WITHIN REACH.
--- NOTE | 2024-11-07 18:00 | NUR ---
174 PT GIVEN ROXANOL AND ATTEMPTED TO GIVE ATIVAN, PT PUSHED MY HAND AWAY AND SAYING "NO, NO, NO" MEDICATION HAD BEEN CRUSHED AND UNABLE TO RETURN TO PYSIS, MEDICATION WASTED INTO NARCOTIC CONTAINER AND WITNESSED BY LANDON COSTA RN
--- NOTE | 2024-11-08 04:45 | NUR ---
SHIFT SUMMARY PATIENT CONTINUES ON COMFORT CARE. NO PO MEDICATIONS GIVEN, PT WAS DISORIENTED THROUGHOUT SHIFT. PT CONTINUES TO HALLUCINATE. ROXANOL GIVEN 2X DURING THE SHIFT PT NODS YES TO PAIN AND MOANS LOUDY. REPOSITIONED Q2H, AND ATTENDS CHANGED PRN FOR SOILED BRIEF. PT REFUSED ORAL CARE. BED IN LOWEST POSITION, CALL LIGHT WITHIN REACH. WILL REPORT ONTO ONCOMING RN.
[2024-11-08] MEDS ORDERED: Lidocaine 4% 1 Patch TOP ONE (15:00)
--- NOTE | 2024-11-08 15:02 | NUR ---
PALLIATIVE CARE VISIT: COMFORT CARE SUPPORTIVE VISIT MADE. PT WAS AWAKE AT TIMES BUT MOSTLY SLEPT AND WAS NOT VERBALLY RESPONSIVE DURING VISIT. SISTER TEGAN PRESENT. TEGAN BROUGHT IN POLST WHICH WAS COMPLETED BY PROVIDER 09/22/24 WHICH INDICATED PT CHOSE DNR/SELECTIVE TREATMENT. PLACED COPY ON CHART AND FAXED COPY TO [facility] AND POLST REGISTRY. SISTER REQUESTS WE HAVE A PORTER USED CAR LOT COME IN WHEN PT IS NON RESPONSIVE TO GIVE LAST RITES. SHE DOES NOT WANT PORTER USED CAR LOT HERE PRIOR TO THEN SO "MY BROTHER DOESN'T GET SCARED AND UPSET". TEGAN REPORTED HER BROTHER C/O HIS TAILBONE HURTING WHEN HE SAT UP TO EAT AND COULD NOT SIT LONG SO HE HAD TO LAY BACK DOWN AND COULDN'T EAT MUCH DUE TO THE PAIN. SISTER AGREEABLE TO TRYING A LIDOCAINE PATCH TO AREA. ORDER RECEIVED FROM DR. LAZAR. ORDER PLACED TO START NOW AND DAILY. SISTER HAD NO OTHER CONCERNS AT THIS TIME.
--- NOTE | 2024-11-08 19:17 | NUR ---
PT ON COMFORT CARE. A&O TO SELF ONLY, YELLS OUT IN PAIN, WILL TAKE PAIN MEDICATION WITH COAXING. LIDOCANE PATCH APPLIED TO TAILBONE, PT REMOVED. PT REMOVES CLOTHING AND BRIEF. FAMILY VISIT TODAY. PT LITTLE ORAL INTAKE, WILL EAT CHOCOLATE PUDDING.
--- NOTE | 2024-11-09 04:26 | NUR ---
SHIFT SUMMARY PATIENT A/O TO SELF ONLY AND CONTINUES WITH COMFORT CARE. REPOSITIONED Q2H AND CHANGED ATTENDS PRN. MEDICATED FOR PAIN WITH ROXANOL PER EMAR AND PO ATIVAN FOR ANXIETY. PT TOLERATED WELL, APPEARS COMFORTABLE. NO ACUTE CHANGES THROUGHOUT THE SHIFT. CONTINUES TO ONLY TAKE IN VERY MINIMAL INTAKE. BED IN LOWEST POSITION, WILL REPORT ONTO DAY SHIFT RN.
[2024-11-09] MEDS ORDERED: Lidocaine 4% 1 Patch TOP SCH (09:00)
[2024-11-09] MEDS ORDERED: Atropine Sulfate 1% Opth Soln 2ML BTL SL PRN (13:10)
--- NOTE | 2024-11-09 18:38 | NUR ---
PALLIATIVE CARE VISIT: 1230: MET WITH PT IN THE ROOM. PT IS AWAKE, DENIES PAIN. ASSISTED WITH REPOSITIONING AND PT MOANS WITH MOVEMENT. REQUESTED PRIMARY RN TO MEDICATE FOR PAIN. PT IS ALSO EXHIBITING MILD AUDIBLE SECRETIONS. REQUESTED MD FOR ATROPINE DROPS. ORDER PLACED. PROVIDED QUILT AND NECK PILLOW FOR COMFORT. PT IS TRANSITIONING. CONTINUE SUPPORTIVE TREATMENT. WILL NOTIFY SISTER OF CHANGES.
--- NOTE | 2024-11-09 18:46 | NUR ---
SHIFT SUMMARY PT ORIENTED TO SELF, AND SISTER ONLY. MORE ALERT TODAY. COMFORT CARE, ROXINOL, OXYCODONE AND ATIVAN EFFECTIVE IN KEEPING PT COMFORTABLE. PT AGREED TO THOUROUGH ORAL CARE WITH SUCTION. ATROPINE ORDERED FOR SECRETIONS. UPDATE GIVEN TO SISTER
--- NOTE | 2024-11-10 04:22 | NUR ---
SHIFT SUMMARY NO ACUTE CHANGES THROUGHOUT THE SHIFT. PATIENT PLEASANT AND COOPERATIVE WITH CARE. MEDICATIONS GIVEN FOR PAIN AND ANXIETY PER EMAR. REPOSITIONED Q2H AND CHANGED ATTENDS PRN. MINIMAL ORAL INTAKE. CALL LIGHT IN REACH, BED IN LOWEST POSITION. WILL REPORT TO ONCOMING RN.
--- NOTE | 2024-11-10 14:41 | NUR ---
NEW ORDERS RCV'D BY PROVIDER. PT IS NO LONGER SWALLOWING PILLS. HE HAS ALSO PULLED OUT HIS IV. SINCE NO IV ACCESS IS AVAILABLE, IV MEDICATIONS D/C'D. PRIMARY RN REPORTS NO ACUTE NEEDS AT THIS TIME. PC TO REMAIN AVAILABLE NEEDED.
--- NOTE | 2024-11-10 20:11 | NUR ---
SHIFT SUMMARY- PT ON CC. HE HAS BEEN VERY MOBILE IN BED, RESTING FITFULLY DURING THE DAY. PT MEDICATED WITH ATIVAN AND MORPHINE T/O THE DAY NEEDED. PT FAMILY CAME TO SEE HIM AND BROUGHT A MILKSHAKE, HE CONSUMED 100% OF IT. HE WAS VERY HAPPY TO SEE HIS SISTER. BEDSIDE REPORT COMPLETED WITH NIGHT RN. PT WOKE TO STAFF VOICES. HE WAS CONFUSED, BUT A&O TO SELF. HE HAD BEEN RESTING PRIOR TO BEDSIDE REPORT. NO S&S OF DISTRESS NOTED.
--- NOTE | 2024-11-11 05:30 | NUR ---
SHIFT SUMMARY: Pt is admitted for hyponatremia and is a DNR. is on comfort care. Is alert and able to make needs known. ADLs have been a mix of 1-2 depending on activity. Pain has been managed with PRN medication. Has been hallucinating off and on through the shift. Has stated that he has seen a cat and dog on the wall and ceiling.
--- NOTE | 2024-11-11 17:02 | NUR ---
PALLIATIVE/COMFORT CARE VISIT: ON ENTRANCE TO ROOM PT IS SITTING UP IN CHAIR AT BEDSIDE. PT HAS HIS SISTER VISITING AND IT APPEARS HE IS GETTING DOCUMENTS NOTARIZED. NOTARY PERSON PRESENT. PT IS ENGAGED, PAINAD IS 0/10. DENIES NEEDS AT THIS TIME. SYMPTOMS MANAGED.
--- NOTE | 2024-11-11 18:08 | NUR ---
SHIFT SUMMARY- PT IN BED, CALL LIGHT IN REACH. NO CURRENT S&S OF DISTRESS NOTED, PT IS ON CC AND HAS HAD NO ACUTE CHANGES T/O THE SHIFT. HE WAS NOT MEDICATED FOR PAIN AND ANXIETY MUCH THIS SHIFT HE WAS TRYING TO BE MORE AWAKE TO "SIGN SOME PAPERS." PT WAS AWAKE AND ANSWERING MOST OF THE ORIENTATION QUESTIONS CORRECTLY WHEN HIS ADVANCED DIRECTIVE WAS COMPLETED TODAY.
--- NOTE | 2024-11-12 16:59 | NUR ---
TRANSFER NOTE: PT TRANSFERED FROM ROOM 330 TO ROOM 351 VIA BED . PT IS COMFORT CARE STATUS AT THIS TIME. PT DECLINES CHEST PAIN AND/OR DISCOMFORT. SITTING AT EOB WITHOUT ASSISTANCE. BED IS IN THE LOWEST POSITION WITH THE CALL LT WITHIN REACH. PT DECLINES PAIN.
--- NOTE | 2024-11-12 17:00 | NUR ---
SHIFT SUMMARY/TRANSFER NOTE- PT STARTED THE DAY SAYING HE DOESN'T WANT TO BE LOOPY ALL THE TIME AND REFUSING TO TAKE PAIN MEDS DESPITE HIS PAIN. HIS WISHES WERE HONORED. MID DAY HE DECIDED HE WANTED THE PAIN MEDICATION AND WAS ANGRY THAT HE HAD NOT HAD IT YET. HIS SISTER CALLED TO CHECK IN AND SHE ASKED THAT HE BE MEDICATED REGULARLY WITH THE ATIVAN. SHE COMES TO SEE HIM EVERY OTHER DAY SHE LIVES IN [place]. PT HAS A TENDANCY TO URINATE ALLL OVER THE FLOOR AND LINNENS. AFTER THE MOP UP, BED BATH, AND LINNEN CHANGE THIS AM, THE PT WAS ASSISTED INTO PANTS. HE CALLED STAFF TO HELP HIM GET THE PANTS OFF TO URINATE, THIS PREVENTED THE MESS. BEDSIDE REPORT COM[PLETED WITH EDWIN CARRANZA WHO IS ASSUMIN CARE AT THIS TIME. PT IS BEING TRANSFERED TO ROOM 351. PT MEDICATED FOR PAIN AND ANXIETY PRIOR TO TRANSFER. PT TRANSFERED IN THE BED, NO S&S OF DISTRESS NOTED AT THE TIME OF TRANSFER.
--- NOTE | 2024-11-13 03:55 | NUR ---
SHIFT SUMMARY ADMITTED FOR HYPONATREMIA. DNR CODE. NOW COMFORT CARE. PLAN IS FOR PLACEMENT ON HOSPICE. AWAITING [facility] MEDICAID. HE IS ON RA, REGULAR DIET, 2 MAX HEAVY ASSIST TO BSC. A&O X2, FORGETFUL AND IMPULSIVE. BED AND CHAIR ALARMS ARE ACTIVE. HE HAS BEEN CONTINENT THIS SHIFT. PALLIATIVE CARE IS CONSULTED. HX: LUNG CANCER W/METS.
--- NOTE | 2024-11-13 16:47 | NUR ---
SHIFT SUMMARY: PT A&OX2-3. PLEASANT WITH CARE. UP TO THE CHAIR A COUPLE TIMES THIS SHIFT WITH A 2P ASSIST. MEDICATED FOR PAIN PER EMAR. LYING IN BED AT THIS TIME. BED IN THE LOWEST POSITION. CALL LT WITHIN REACH. BED ALARM SET FOR SAFETY.
--- NOTE | 2024-11-14 05:02 | NUR ---
SHIFT SUMMARY NOC PT A/O X 3-4. SLIGHTLY CONFUSED AT TIMES. PLEASANT AND COOPERATIVE WITH CARE. PT ON COMFORT CARE MEASURES. PAIN AND ANXIETY BEING MANAGED PER EMAR. FOR TRANSFERING PT USING SIT TO STAND DUE TO SEVERE BLE WEAKNESS. PT AWAITING PLACEMENT FOR HOSPICE. PT CURRENTLY RESTING WITH BED ALARM ON, BED IN LOWEST POSITION, AND CALL LIGHT WITHIN REACH.
--- NOTE | 2024-11-14 16:26 | NUR ---
SHIFT SUMMARY PT AWAKE DURING SHIFT REPORT, AND HAD REQUESTED PAIN MEDICATION AND ATIVAN FROM NOC RN. PT SPIT THEM OUT AT THE TASTE, REPORTING THAT HE WAS CAUGHT OFF GUARD BY IT. PT LATER REPORTED THAT HE IS ABLE TO SWALLOW MEDS WITH ICE WATER. PT UP TO CHAIR AT BS UNTIL ALMOST LUNCH TIME, WANTING TO GO BACK TO BED. PT ASSISTED VIA SIT TO STAND. DR MEDRANO IN TO SEE PT PRIOR TO LUNCH, PT SLEEPING. PT LATER WOKE AND REQUESTED TO GET UP TO CHAIR. 1P ASSIST TO CHAIR TO EAT LUNCH. PT UP TO BSC FOR EX LRG BM; 2P ASSIST USING G/B. PT IS CURRENTLY ON COMFORT CARE. PER NOC SHIFT REPORT, PT WAITING TO D/C ON HOSPICE. PT AGAIN RESTING QUIETLY IN BED. CALL LT IN REACH. BED ALARM ON FOR SAFETY.
--- NOTE | 2024-11-15 04:19 | NUR ---
SHIFT SUMMARY NOC PT A/O X 3-4. FORGETS LIMITATIONS AT TIMES. ON COMFORT CARE MEASURES. PT PAIN AND ANXIETY BEING MANAGED PER EMAR. PT LIDOCAINE PATCH HAD FALLEN OFF EARLIER IN DAY, AND REPLACEMENT PATCH PUT IN MIDDLE OF BACK. PT BLE STRENGTH WAXES AND WANES, SOMETIMES THEY ARE ABLE TO TRANSFER WITH 2PA AND OTHER TIMES WITH SIT TO STAND LIFT. PT AWAITING HOSPICE PLACEMENT. PT CURRENTLY RESTING WITH BED ALARM ON, BED IN LOWEST POSITION, AND CALL LIGHT WITHIN REACH.
--- NOTE | 2024-11-15 17:01 | NUR ---
DAY SUMMARY ORIENTATION WAXES AND WANES, ENDORSES PAIN W/REPOSITION, MEDICATED PER MAR FOR PAIN & ANXIETY, 2 PERSON TRANSFER TO BSC OR TO STAND AT BEDSIDE TO USE URINAL, BEDRESTING THIS SHIFT, ALL LIGHT IN REACH, BED ALARM ACTIVE, WILL CONT TO MONITOR UNTIL REPORT GIVEN TO ONCOMING NURSE.
--- NOTE | 2024-11-16 06:14 | NUR ---
SHIFT SUMMARY: Pt is admitted for hyponatremia and is a DNR. is on comfort care. Is alert and able to make needs known. ADLs have been a mix of 1-2 depending on activity. Pain has been managed with PRN medication.
--- NOTE | 2024-11-16 17:39 | NUR ---
DAY SUMMARY UP TO CHAIR FOR MOST OF SHIFT, SISTER BROUGHT FAST FOOD LUNCH (PT ATE 50%), UP TO CHAIR FOR MOST OF SHIFT, MEDICATED PER MAR FOR PAIN (LOWER BACK/COCCYX), RESTING COMFORTABLY AT THIS TIME, CALL LIGHT IN REACH, CHAIR ALARM ACTIVE, WILL CONT TO MONITOR UNTIL REPORT GIVEN TO ONCOMING NURSE.
--- NOTE | 2024-11-17 03:09 | NUR ---
SHIFT SUMMARY/ COMFORT CARE NOTE NO ACUTE EVENTS DURING THIS SHIFT. PT MOANING AND STATING HAS PAIN T/O THE BODY. MEDICATED PER EMAR FOR PAIN AND ANXIETY T/O THIS SHIFT. MEPILEX ON SACRAL AREA PLACED D/T REDNESS. REPOSITIONED DURING THE NIGHT HRS. INCONTINENT OF URINE, ATTENDS IN PLACE. AT HS PT ABLE TO FEED HIMSELF A COOKIE/ FINGER FOOD SNACKS. PT IS A/O X1-2, ABLE TO MAKE HIS NEEDS KNOWN AND COOPERATIVE WITH CARE. PT REFUSED WHEN THIS HYDROSTATIC TUBING TESTER EDUCATED THE PT ABOUT CHAMPION CATHETER PLACEMENT. PT DECLINES THE NEED OF. BED AT THE LOWEST POSITION, CALL LIGHT WITHIN REACH.
--- NOTE | 2024-11-17 17:14 | NUR ---
Shift Summary Mr Luna is orientated to his name and sometimes to hospital. He is forgetful and has periods throughout the day when he forgets where he is but is quickly reorientated and voices relief to be here. He has been medicated for pain with roxinol; he is able to verbalise pain, also had one period when he was moaning with respirations, he c/o pain sometime when he is repositioned. Turned and repositioned Q2hrs. No resp distress, some moist respirations, suction for clear sputum x1 and atropine drops given. He allowed oral care twice, declined it at times. He hasn't eaten much; no breakfast, one orange juice, a decaf coffee mixed with chocolate pudding for lunch. He has urinated one large incontinent void. No BM today. His sister Irina telephoned, no visitors this shift. Bed low, call light in reach, bed alarm on.
--- NOTE | 2024-11-17 23:50 | NUR ---
APPROXIMATELY 2315 PT ATTEMPTING TO CLIMB OUT OF BED, LE'S OUTSIDE THE BED OVER THE BEDRAIL. PT AGITATED, AND COMBATITIVE WITH THE STAFF WHO ATTEMPTED TO ASSIST THE PT BACK TO BED. PT SWINGING THE CALL LIGHT REMOTE ON STAFF MEMBER. SQUEEZING STAFF MEMBERS FINGERS AND HANDS WHEN ATTEMPTING TO ASSIT AND BOOST THE PT IN BED TO HOB. UNABLE TO REORIENT. JACK PRIZERMICHEL SHAW INITIATED PETE VERMA FOR SAFETY. THIS CHANGE CONTROL MANAGER CALLED THE ON-CALL HOSPITALIST AND RECEIVED THE FOLLOWING ORDERS: BENADRYL PO 50MG X1, AND SEROQUEL 25MG PO Q4 FOR AGITATION. PETE WAS PUT ON THE PT WITH 2 RN'S, ANDREW AND THIS CHANGE CONTROL MANAGER. BED AT THE LOWEST POSITION, CALL LIGHT W/I REACH, BED ALARM FOR SAFETY. WILL ADMINISTER BENADRYL AND SEROQUEL PO IF PT WILL AGREE TO TAKE THESE MEDICATIONS.
--- NOTE | 2024-11-18 03:15 | NUR ---
SHIFT SUMMARY/COMFORT CARE NOTE PT CONTINUES IN PETE VEST FOR SAFETY D/T ATTEMPTING TO GET OUT OF BED, AGITATION, CONFUSION, AND UNSAFE BEHAVIOR. (SEE PREVIOUS NOTE). PT MOANING IN PAIN, FACE SCALE 7, MEDICATED PER EMAR FOR ANXIETY AND PAIN T/O THIS SHIFT. ONE TIME ORDER OF BENADRYL AND NEW ORDER OF SEROQUEL 25MG PO WAS ADMINISTERED ORDERED. PETE INTERVENTIONS COMPLETED ORDERED,SAFETY ASSURED. BED AT THE LOWEST POSITION, CALL LIGHT WITHIN REACH. PT ABLE TO MAKE HIS NEEDS KNOWN AND USES THE CALL LIGHT. SNACK PROVIDED, FINGERFOODS. ENCOURAGING PO FLUID INTAKE, WELL ENSURE SUPPLEMENTS.
--- NOTE | 2024-11-18 07:50 | NUR ---
RN NOTE MR KIM IS CALM, ORIENTATED TO SELF, ABLE TO ANSWER SIMPLE QUESTIONS, RELAXED IN BED AT THIS TIME. PETE RESTRAINT REMOVED AT 0735HRS. HE ALLOWED ORAL CARE, EXPECTORATED PHLEGM AND ASKED FOR SUCTION.
--- NOTE | 2024-11-18 15:29 | NUR ---
Shift Summary Mr Luna has slept quite a lot this shift. He ate a little lunch and has taken sips of fluids intermittently throughout the shift, though not much intake overall. He c/o needing a BM, up to BSC with 2 staff assistance to transfer, +flatus, no BM. Incontinent of urine x2. Katelyn restraint was removed at 0735hrs. He has tried to get up out of bed once, but was redirectable and is now resting calmly in bed. He has been able to communicate that he needed pain medications twice, and otherwise has declined pain medications. Mr Luna described some hallucinations that he was having, but they were not disturbing to him. Sleeping now, bed low, call light in reach and bed alarm on.
--- NOTE | 2024-11-19 03:23 | NUR ---
SHIFT SUMMARY/COMFORT CARE NOTE NO ACUTE EVENTS DURING THIS SHIFT. PT MOANING IN PAIN EVERY 2-4HRS. PT REPORTS PAIN IN THE BACK, SHOULDERS AND NECK, (FACE SCALE 8-9/10). MEDICATED WITH PRN ROXYNOL Q3-4HRS PRN T/O THIS SHIFT. MEDICATED WITH ATIVAN PRN FOR ANXIETY ORDERED. AT 0230 PT BECAME AGITATED AND RESTLESS, MEDICATED WITH PRN SEROQUEL ORDERED. PT IS INCONTINENT OF URINE, ATTENDS IN PLACE. PT IS A/O X1. POOR PO INTAKE, FINGERFOOD SNACK AND ASSISTED WITH PO FLUIDS. MEPILEX ON COCCYX INTACT. MEDS CRUSHED WITH APPLESAUCE, PT TOLERATING WELL. CHAIR ALARM UNDER THE LU IN BED (ABSTRACT MANAGER NOTIFIED). 3 RAILS UP, CALL LIGHT W/I REACH. PT USES THE CALL LIGHT, AND IS ABLE TO MAKE HIS NEEDS KNOWN. BED AT THE LOWEST POSITION.
[2024-11-19 07:36] VITALS: BP 151/79
--- NOTE | 2024-11-19 16:31 | NUR ---
SHIFT SUMMARY= PT IS ON CC, HE IS VERY MOBILE IN THE BED AND SUCH IS FREQUENTLY REPOSITIONED. TODAY HE WAS IN THE BED TO THE CHAIR AND BACK TO THE BED THEN SIDE LYING. FINALLY HE WAS COMFORTABLE AFTER PAIN MEDS AND ATIVAN. PT APPEARS TO BE RESTING COMFORTABLY AT THIS TIME. CALL LIGHT IN REACH NO S&S OF DISTRESS NOTED, BED ALARM SET FOR PT SAFETY. WILL PASS ON TO NIGHT RN IN REPORT.
--- NOTE | 2024-11-20 05:32 | NUR ---
PT A&O X1 TO SELF ONLY, PT ON COMFORT CARE. USING ATTENDS, INCONTINENT X1 THIS SHIFT, PO INTAKE POOR, TAKING ONLY SIPS WITH ASSIST. REPOSITIONED WHEN ASKED. MEDICATED WITH ROXINOL FOR PAIN X3 THIS SHIFT, AND ATIVAN X2 THIS SHIFT, STILL ABLE TO TAKE MEDS CRUSHED. AWAITING MEDICAID APPROVAL.
--- NOTE | 2024-11-20 14:33 | NUR ---
PALLIATIVE CARE VISIT: SUPPORTIVE VISIT MADE TO PATIENT. SYMPTOMS REVIEWED WITH PT. HE IS ALERT TO SELF. REDNESS TO SKIN ON LOWER ABD NOTED. APPEARS TO BE IRRITATION FROM ATTENDS. APPLIED SKIN BARRIER TO AREA. NOTIFIED BREAK NURSE OF CONCERN. DURING VISIT PT WAS CALM, HAD JUST BEEN MEDICATED WITH LORAZEPAM DUE TO SIGNS OF AGITATION PRIOR TO VISIT. HE APPEARS TO BE POSSIBLY HALLUCINATING STATING "DO YOU SEE THE WINDOW IS MOVING OVER THERE". HE POINTED AT WINDOW IN THE CORNER OF THE ROOM. PT HAS NO OBSERVED SOB OR SIGNS OF PAIN DURING VISIT. HE DOES NOT ALWAYS RESPOND TO QUESTIONS APPROPRIATELY. PT IS HAVING NORMAL END OF LIFE CHANGES. SYMPTOMS MANAGED AT THIS TIME.
--- NOTE | 2024-11-20 16:43 | NUR ---
SHIFT SUMMARY- PT IS ON CC AND HAS BEEN REPOSITIONED IN BED HE WOULD ALLOW TODAY. HE HAS TRIED TO GET UP A FEW TIMES BUT WAS UNSURE WHY WHEN STAFF CAME TO ASSIST HE WANTED TO RETURN TO THE BED. HE HAS BEEN MORE AGGITATED TODAY MEDS PER EMAR FOR THAT AND THE PAIN. PT IS CURRENTLY SLEEPING SOUNDLY ON THE BED, CALL LIGHT IN REACH NO S&S OF RESP DISTRESS, HE DOES NOT WAKE TO STAFF VOICES OR GENTLE TOUCH AT THIS TIME. WILL PASS ON TO NIGHT RN IN REPORT.
--- NOTE | 2024-11-21 05:00 | NUR ---
PT A&O X1-2, PT CONFUSED MOST SHIFT, DID SHOW INCREASED ANXIETY WITH CARE. USED URINAL X1, AND WAS INCONTINENT ALSO. ROXINOL AND ATIVAN ADMINISTERED.
--- NOTE | 2024-11-21 12:29 | NUR ---
PT DIET CHANGE- PT IS NOT ABLE TO FEED HIMSELF. WELDER FITTER APPRENTICE ASSISTING HIM TO EAT, HE IS UNABLE TO CHEW THE FOOD. CHANGED DIET TO SOFT BITE SIZED TO SEE IF HE CAN HAVE MORE SUCESS WITH THAT DIET.
--- NOTE | 2024-11-21 17:28 | NUR ---
SHIFT SUMMARY- PT ALERT AND ORIENTED TO SELF AND FAMILY. HE HAS BEEN WATCHING HUNTING SHOWS ALL DAY AND HIS CONFUSION HAS BEEN OFF AND ON AND WITH THAT THEME. PT HAS BEEN REDIRECTABLE, MOSTLY. AT ONE POINT HE SEEMED INTENT ON GOING OUT "FOR A SMOKE." NO AMOUNT OF REDIRECTION SEEMED TO HELP HIM AND, AT THAT TIME, HER REFUSED THE ATIVAN. A LITTLE LATER HE REQUESTED ASSISTANCE BACK TO BED AND ASKED FOR PAIN MED AND ATIVAN. THAT SEEMED TO HAVE HELPED. PT IN BED, CALL LIGHT IN PLACE NO S&S OF DISTRESS NOTED AT THIS TIME.
[2024-11-22] MEDS ORDERED: Morphine Sulfate 20 MG/1ML 1 ML Oral Syringe SL ONE (14:40)
--- NOTE | 2024-11-22 14:41 | NUR ---
PALLIATIVE CARE VISIT: ROUNDED ON PT. UPON ENTERING ROOM, PT LYING IN BED SUPINE, PT IS MOANING NON-STOP, HE APPEARS RIGID. SPOKE TO PRIMARY RN. PT GIVEN ROXANOL 20 MG SL AT 1330 ALONG WITH ATIVAN 1 MG AND IT HAS BEEN INEFFECTIVE. CALLED DR. MEDRANO AND SBAR GIVEN. ORDER RECEIVED TO GIVE ONE TIME DOSE OF ROXANOL 20 MG SL AND ATIVAN 1 MG PO. UPDATED PRIMARY RN WITH NEW ORDER.
--- NOTE | 2024-11-22 17:18 | NUR ---
SHIFT SUMMARY: PATIENT ON COMFORT CARE MEASURE, A/O TO SELF, CONFUSED. PATIENT MAKES MAONING SOUNDS AND OT EPISODE OF AGITATION THIS AM. PATIENT MEDICATED c SEROQUEL, ATIVAN AND ROXANOL FOR COMFORT PER EMAR. PATIENT HAS HAD BREATHING PAUSES, NO SKIN MOTTLING NOTED. PATIENT IS 1:1 FEEDER, POOR ORAL INTAKE AND 2 INCONTINENT VOID. ORAL CARE AND REPOSITION FOR COMFORT. PATIENT SISTER (TEGAN) VISITED TODAY, UPDATED c PLAN OF CARE, VERBALIZED UNDERSTANDING AND NO FURTHER QUESTIONS. PER TEGAN SHE WILL BE BACK IN 2 DAYS TO VISIT HIM.
--- NOTE | 2024-11-23 05:04 | NUR ---
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 PT IS A&OX1 (SELF) AND CONFUSED MOST OF THE TIME, BUT IS A&OX3 (SELF, PLACE, SITUATION) INTERMITTENTLY. PT MOANS, BUT HAS VERBALIZED PAIN TWICE. PAIN MEDS GIVEN PER EMAR. PT ALSO HAS INTERMITTENT AGITATION. PT ATTEMPTED TO SHOVE AND SPIT AT AUTHOR. AGITATION IMPROVED WITH REDIRECTION AND UNINTERRUPTED REST. PT ALSO DOES NOT REMEMBER SISTER VISITNG HIM DURING THE AM SHIFT. BED ALARM ON, BED RAILS UP X 2, BED IN LOWEST POSITION, BED WHEELS LOCKED, PERSONAL BELONGINGS AND CALL LIGHT WITHIN REACH. PT WILL ALSO YELL OUT LOUD TO VOICE NEEDS. RN POSITIONED OUTSIDE DOORWAY. AWAITING [facility] MEDICAID.
--- NOTE | 2024-11-23 17:47 | NUR ---
SHIFT SUMMARY PATIENT A/OX1, IMPULSIVE. PLEASANT ADN COOPERATIVE WITH STAFF THIS SHIFT, ANXIOUS THIS MORNING, PRN ATIVAN ADMINISTERED PER JUL. PATIENT WITH SHALLOW LABORED BREATHING INTERMITTENTLY AND COMPLAINING OF PAIN, MEDICATED WITH ROXANOL PER JUL. PRESSURE INJURY NOTED TO DR. MARCELA SNYDER NOTIFIED AND WOUND CARE ORDERS RECIEVED AND PROVIDED TO PATIENT. REPOSITIONED Q2 HOURS. NO OTHER CONCERNS AT THIS TIME, WILL CONTINUE TO MONITOR.
--- NOTE | 2024-11-24 06:32 | NUR ---
SHIFT SUMMARY PT ALERT, ORIENTED TO SELF ONLY. FOLLOWS COMMANDS INTERMITTENTLY, IRRITABLE AT TIMES. COMFORT CARE MEASURES IN PLACE. PRN MORPHINE GIVEN FOR 4-6/10 PAIN BY FLACC SCALE. Q2 CHECK/CHANGES AND TURNS COMPLETED. WOUND CARE COMPLETED AT GLUTEAL FOLD. MINIMAL ORAL INTAKE, SIPS MORE EFFECTIVE THAN STRAW. ORAL SUCTION EFFECTIVE FOR THICK ORAL SECRETIONS, PT REFUSED FURTHER ORAL CARE. 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
--- NOTE | 2024-11-24 14:51 | NUR ---
Spiritual Care Visit. Pt. is on comfort care and is not responsive. Pt. is alone. Prayed for Pt. as he displays evidence that his time is short. Pt. has been seen by [facility] ministers as the Pt. is [employer]ah[employer]ism. Will remain available to Pt.
[2024-11-24] MEDS ORDERED: Morphine Sulfate 20 MG/1ML 1 ML Oral Syringe SL PRN (16:20)
--- NOTE | 2024-11-24 16:31 | NUR ---
DISCUSSED PAIN MANAGMENT WITH B[facility]. CALLED PROVIDER. FREQUENCY OF ROXINOL CHANGED
--- NOTE | 2024-11-24 17:28 | NUR ---
SHIFT SUMMARY PATIENT A/OX1, COMBATIVE WITH STAFF INTERMITTENTLY WHILE PROVIDING CARE DUE TO LACK OF UNDERSTANDING. PATIENT EDUCATED WHILE PROVIDED CARE BUT UNABLE TO COMPREHEND AT THIS TIME. BOWEL MEDICATIONS HELD THIS MORNING DUE TO FREQUENT LOOSE STOOLS. WOUND CARE PROVIDED TO STAGE 3 PRESSURE INJURY TO COCCYX, DR. MEDRANO AT BEDSIDE. PATIENT ANXIOUS, MOANING, AND AGITATED WITH STAFF, MEDICATED PER MAR WITH ATIVAN, SEROQUIL, AND ROXANOL PER MAR. SCOPALAMINE PATCH PLACED FOR ORAL SECRETION. PATIENT CONTINUES TO REFUSE ORAL CARE, DEPSITE MULTIPEL ATTEMPTS. DENTAL HYGIENIST AT BEDSIDE TO ATTEMPT ORAL CARE AND PATIENT REFUSED WITH HER WELL. SISTER, TEGAN, UPDATED ON PATIENT STATUS AND AWARE OF PATIENT'S PRESSURE INJURY. PALLIATIVE CARE WAS NOTIFIED THIS EVENING PATIENT'S PAIN MEDICATION REGIMEN INEFFECTIVE, PATIENT CONTINUES TO MOAN AND GRIMACE AT REST DESPITE ROXANOL ADMINISTRATION Q2 HOURS. ROXANOL INCREASED TO Q1 HOUR PRN. NO OTHER CONCERNS AT THIS TIME, WILL CONTINUE TO MONITOR.
--- NOTE | 2024-11-24 20:07 | NUR ---
PT IS STILL MOANING IN PAIN EVEN AFTER TAKING ROXANOL 20MG PO Q1HR AND ATIVAN Q2HR. CALLED MD AND GOT A ORDER TO GIVE DILAUDID Q2HR PRN PAIN IF ROXANOL NOT EFFECTIVE.
--- NOTE | 2024-11-25 05:18 | NUR ---
SHIFT SUMMARY PT DROWSY, RESPONSIVE TO VOICE, ORIENTED TO SELF. NO OUTPUT NOTED THIS SHIFT. PT PERMITTED ORAL CARES THIS MORNING. PRESSURE INJURY AT COCCYX CLEANED, PATTED DRY, MEPILEX CDI. Q2 TURNS COMPLETED. PT MOANS INTERMITTENTLY, PRN MEDICATIONS DO NOT SEEM TO AFFECT FREQUENCY. PRN ROXANOL AND ATIVAN GIVEN FOR INCREASED WORK OF BREATHING AND PAIN ASSESSED BY FACES OR FLACC SCALE. SAFETY PRECAUTIONS IN PLACE.
--- NOTE | 2024-11-25 05:52 | NUR ---
PT HAD NO URINE OUTPUT DID BLADDER SCAN ON HIM AND GOT 323 WILL CONT TO MONITOR AND INFORM INCOMING SHIFT
--- NOTE | 2024-11-25 11:21 | NUR ---
PATIENTS BREATHING IS RAPID, BROWS FURROWED. DISCUSSED WITH PROVIDER ADDED FENTANYL PATCH. DISCUSSED CASE WITH BS NURSE.
--- NOTE | 2024-11-25 13:33 | NUR ---
Spiritual Care | Father Jaun Arranged to have Father Jaun do the "Annointing of the Sick" with the. Family members are at bedside when Scot Zamorano arrives approx. 1325.
--- NOTE | 2024-11-26 02:18 | NUR ---
PT AT 0150. WENT INTO PTS ROOM. PT HAD NO HR, NO RESP AND NO BP. ME AND ANOTHER NURSE JENS RN CHECKED THE PT AND PRONOUNCED THE PT AT 0150. ATTEMPTED TO CALL PTS SISTER TEGAN BUT THERE WAS NO ANSWER I LEFT A MESSAGE FOR HER TO RETURN OUR CALL. CALLED DR. YAP AND INFORMED HIM OF THE PTS . I INFORMED THE CHARGE NURSE INDU OF THE PTS .
--- NOTE | 2024-11-26 06:22 | NUR ---
SEVERAL ATTEMPTS WERE MADE TO CONTACT PTS SISTER TEGAN AND THE PHONE GOES RIGHT TO A VOICE MAIL. I ALSO TRIED SEVERAL TIMES TO CONTACT HIS OTHER SISTER DEEPTHI AND LEFT A MESSAGE FOR HER TO CALL US.
--- NOTE | 2024-11-26 09:57 | NUR ---
UPDATE PATIENT PASSED AT 0200. [facility]AV[facility] OF [facility] PICKED BY FAMILY FOR HOME. PER [employer] [employer], THEY ARE STILL ATTEMPTING TO REACH OUT OF FAMILY REGARDING EYE DONATION. PER [employer] IT HAS BEEN OVER 4HRS AND WE ARE NEEDING THE ROOM FOR ADMISSIONS. 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
--- NOTE | 2024-11-26 10:48 | NUR ---
PT WAS PICKED UP BY CHOICE OF HOME BY [facility].
== END 2024-11-26 02:43 ==
LOC: ER 18:45 → MEDS 18:46
PROVIDERS: Student in an Organized Health Care Education/Training Program; ADMIT Family Medicine
DX: E22.2 Syndrome of inappropriate secretion of antidiuretic hormone (principal); C34.90 Malignant neoplasm of unspecified part of unspecified bronchus or lung; C79.31 Secondary malignant neoplasm of brain; Z51.5 Encounter for palliative care; E11.40 Type 2 diabetes mellitus with diabetic neuropathy, unspecified; I11.0 Hypertensive heart disease with heart failure; I50.30 Unspecified diastolic (congestive) heart failure; I27.20 Pulmonary hypertension, unspecified; K21.9 Gastro-esophageal reflux disease without esophagitis; G92.8 Other toxic encephalopathy; F17.200 Nicotine dependence, unspecified, uncomplicated; Z88.1 Allergy status to other antibiotic agents; Z88.2 Allergy status to sulfonamides; Z88.6 Allergy status to analgesic agent; Z79.84 Long term (current) use of oral hypoglycemic drugs; Z79.899 Other long term (current) drug therapy
CPT/HCPCS: 80053; 85025; 93005; 93010; 94760; 96374; 96375; 96376; 99285-25; A9270; G0378; J1630; J3360